=== PATIENT | male | born 1935 | race Caucasian/White ===

== ENCOUNTER → 2019-01-20 | Outpatient (CLI) | payer OTHER, MEDICAID ==
[2016-07-24 20:45] VITALS: BP 135/76
[~2019-01-20] MED LIST: ACETAMINOPHEN PO; AMLO5TAB10 PO; IRON PO; LISI-334 PO; METO50TA29 PO; TAMS0.4C97 PO; VITAMIN B 12 PO; [UNRECOGNIZED DRUG - OTHER] PO
--- NOTE | 2019-01-20 13:23 | KCIC ---
EXAM: Left hip, 2 views. HISTORY: Pain with weightbearing. COMPARISON: None. FINDINGS: 2 views of the left hip are obtained. There is no fracture, dislocation or subluxation. The femoral head is normal in configuration. IMPRESSION: No acute osseous finding. Electronically signed by: Sena Montalvo MD (01/20/2019 1:20 PM) [facility]
== END | disposition home or self-care (01) ==
LOC: KCIC 12:36
PROVIDERS: ATTEND Family Medicine
DX: M25.552 Pain in left hip (principal)
CPT/HCPCS: 73502

== ENCOUNTER → 2019-05-19 | Outpatient (CLI) | payer OTHER, MEDICAID ==
[2016-07-24 20:45] VITALS: BP 135/76
[~2019-05-19] MED LIST changes: +IOHEXOL 240 MG/ML 50ML VIAL. PO ONE; +IOHEXOL 300 MG/ML 100ML VIAL. IV ONE
--- NOTE | 2019-05-19 11:50 | RAD ---
PQRS Compliance Statement: One or more of the following individualized dose reduction techniques were utilized for this examination: 1. Automated exposure control 2. Adjustment of the mA and/or kV according to patient size 3. Use of iterative reconstruction technique CT chest, abdomen and pelvis with contrast 05/19/2019 INDICATION: Prostate cancer. COMPARISON: CT abdomen/pelvis 08/06/2016 TECHNIQUE: Multiple axial CT images of the chest, abdomen and pelvis were obtained after the intravenous administration of 75 cc Omnipaque 300. Coronal and sagittal reformats are provided. FINDINGS: Thyroid gland is normal in appearance. There are no pathologically enlarged axillary, mediastinal or hilar lymph nodes. Heart size within normal limits. There is no pericardial effusion. Thoracic aorta is normal in course and caliber. Three-vessel coronary artery vascular calcifications are identified. 2 mm solid noncalcified pulmonary nodules identified in the left upper lobe (series 2, image 39). There is a 3 mm solid noncalcified pulmonary nodule in the left lower lobe (series 2, image 55). Calcified granulomas are identified in the lung bases bilaterally. No pleural effusions, pulmonary vascular congestion or pneumothorax. Liver, spleen, bilateral adrenal glands, pancreas and gallbladder are normal in appearance. Abdominal aorta is normal in course and caliber. There is a 7.5 mm left external iliac lymph node (series 4, image 67) this finding previously measured 2 mm on 08/06/2016. Additional left external iliac lymph node is pathologically enlarged measuring 1.9 cm (series 4, image 69). Left inguinal lymph node measures 8 mm by short axis (series 4, image 81). There is no free fluid or free intraperitoneal air. Oral contrast was administered. Opacified bowel loops demonstrate normal mucosal fold pattern. Small and large bowel are normal in caliber. There is no evidence for bowel obstruction. There are no pericolonic inflammatory changes. Appendix is not definitively visualized. No pericecal inflammatory changes are identified. There is a 3.2 cm hypoattenuating lesion in the superior pole the right kidney which measures higher than that of simple fluid. This finding previously measured 2.7 cm on 08/06/2016. The kidneys enhance symmetrically. There is no suspicious renal mass. There is no hydronephrosis. There are no suspected calculi within the kidneys, ureters or urinary bladder. Urinary bladder is within normal limits given degree of distention. Prostate is nonenlarged with coarse calcification. Small fat-containing right lateral hernia is identified. Patchy sclerotic osseous changes are identified with periosteal reaction involving the left iliac bone suspicious for osseous metastatic disease. Consideration may be given for posttreatment related changes or underlying infection. IMPRESSION: 1. Pathologically enlarged left external iliac lymph nodes are identified suspicious for metastatic disease. Tissue sampling is recommended. Borderline left inguinal lymph nodes are identified. Next line 2. Mottled sclerotic changes of the left iliac bone with periosteal new bone formation may reflect osseous metastatic disease versus posttreatment related changes or underlying infection/osteomyelitis. 3. 3 mm solid noncalcified pulmonary nodule is identified in the left lower lobe. Attention on follow-up exams is recommended. Electronically signed by: Carla Brandon MD (05/19/2019 11:47 AM) [facility]
--- NOTE | 2019-05-19 15:20 | RAD ---
Examination: BONE SCAN WHOLE BODY History: Prostate cancer Comparison/Correlation: CT chest abdomen and pelvis with contrast a 05/19/2019 Findings: A total of 25 mCi technetium 99m MDP was intravenously administered for purposes of total-body bone scintigraphy. Uptake involving the left glenohumeral joint compatible with degenerative change is evident. Subtle focus of uptake at the left fourth rib anterolaterally is present and of indeterminate significance. No suspicious corresponding finding on CT exam performed the same day. Left sixth and ninth costovertebral junction uptake is evident likely representing degenerative change as there are no suspicious corresponding findings on CT exam. Kidneys and urinary bladder are visualized. Diffuse uptake involving the left iliac wing extends to the acetabulum. This corresponds to patchy sclerotic-lytic process seen on CT exam. Small focus of intense uptake involving the right iliac bone laterally is noted. Corresponding sclerosis and small lucency is noted on CT exam performed the same day. Degenerative changes are noted involving the medial with uptake evident. Impression: Intense uptake involving the left iliac wing extending to the acetabulum. This finding may represent metastatic disease although possibility of Paget's disease is not necessarily excluded. Small focus of uptake involving the right iliac bone laterally is also evident raising question of metastatic involvement considering corresponding findings on chest CT. Electronically signed by: Javan Talbot MD (05/19/2019 3:17 PM) [facility]
== END | disposition home or self-care (01) ==
LOC: NM 08:34
PROVIDERS: ATTEND Internal Medicine Hematology & Oncology
DX: C61 Malignant neoplasm of prostate (principal); R59.0 Localized enlarged lymph nodes; R91.1 Solitary pulmonary nodule
CPT/HCPCS: 71260; 74177; 78306; A9503; Q9966; Q9967